=== PATIENT | female | born 1965 | race Caucasian/White ===

== ENCOUNTER → 2016-10-31 | Outpatient (CLI) | payer BC ==
--- NOTE | 2016-10-31 19:37 | RADIOLOGY REPORT PS360 ---
US RUQ-(ABD LTD)1ORGAN/QUAD/FU Ordering Physician: Dexter Meyer MD Patient Age: 51 years: Female HISTORY: RUQ PAINnausea diarrhea. TECHNIQUE: Ultrasound right upper quadrant FINDINGS Pancreas. Appears satisfactory. No significant findings. Liver. No focal lesion. No biliary ductal dilatation. Minor fatty changes liver Portal vein normal Gallbladder. Sludge. Probable polyp superior wall. ~5 mm size Question borderline wall thickening. If right upper quadrant were biliary Pain persist consider HIDA scan. Right kidney appears normal in morphology. Normal in size 10 cm length. Common duct normal diameter 4.2 mm at hilum of liver IMPRESSION: ... 1. No gallstones. Minimal sludge Probable nonshadowing & adherent polyp noted measures 5 mm. Gallbladder wall upper normal thickness ..Consider HIDA scan if RUQ symptoms persist. 2. Liver. Mild fatty changes.
== END ==
LOC: RAD 10-26 08:30
DX: R10.11 Right upper quadrant pain (principal)